=== PATIENT | female | born 1995 | race Caucasian/White ===

== ENCOUNTER 2018-06-06 22:28 | Emergency (ER) | payer BC ==
[~2018-06-06] VITALS: Ht 170.2 cm; Wt 104.3 kg
== END 2018-06-07 01:50 | disposition home or self-care (01) ==
LOC: ER 22:28
DX: S61.257A Open bite of left little finger without damage to nail, initial encounter (principal); W54.0XXA Bitten by dog, initial encounter; Z88.1 Allergy status to other antibiotic agents
CPT/HCPCS: 73140; 90471; 90714; 99283-25